=== PATIENT | male | born 1990 | race Caucasian/White ===

== ENCOUNTER → 2019-12-12 | Emergency (ER) | payer OTHER ==
[~2019-12-12] VITALS: Ht 180.3 cm; Wt 77.1 kg
[~2019-12-12] MED LIST: BACTRIM DS TAB1 EACH PO; DIFLUCAN200 MG PO; KEFLEX500 M1 PO
[2019-12-12 19:51] VITALS: BP 139/83
== END ==
LOC: ER 19:50
DX: L02.413 Cutaneous abscess of right upper limb (principal); L03.113 Cellulitis of right upper limb; F17.210 Nicotine dependence, cigarettes, uncomplicated